=== PATIENT | female | born 1965 | race Hispanic/Latino ===

== ENCOUNTER → 2018-06-17 | Outpatient (CLI) | payer OTHER ==
[~2018-06-17] MED LIST: ADV250 IH; ALBU6.7H IH; BECL8.7A5 IH; CARV25TA PO; FURO20TA6 PO; FURO40TA5 PO; LISI40TA4 PO; OSEL75 PO; POTA-9 PO; PRED20TA3 PO
== END | disposition home or self-care (01) ==
LOC: OIH 13:48
PROVIDERS: ATTEND Internal Medicine Cardiovascular Disease
DX: Z13.6 Encounter for screening for cardiovascular disorders (principal); F10.10 Alcohol abuse, uncomplicated; I11.0 Hypertensive heart disease with heart failure; I50.9 Heart failure, unspecified
CPT/HCPCS: 75571

== ENCOUNTER 2025-02-25 01:46 | Emergency (ER) | payer MEDICAID ==
[~2025-02-25] VITALS: Ht 154.9 cm; Wt 75.3 kg
[~2025-02-25 01:46] MED LIST changes: -ADV250 IH; -ALBU6.7H IH; +ALBUHFA PUFF; +AMLO-257 PO; -BECL8.7A5 IH; -CARV25TA PO; +FLUT110HFA PO; -FURO20TA6 PO; -FURO40TA5 PO; +LETR2.5T7 PO; -LISI40TA4 PO; +LISI40TA9 PO; +METO75TA PO; -OSEL75 PO; -POTA-9 PO; -PRED20TA3 PO
--- NOTE | 2025-02-25 01:57 | NUR ---
RT CALLED AT THIS TIME
[2025-02-25 02:11] LABS: BASOPHILS # (AUTO) 0.03 K/uL (0.00-0.20); BASOPHILS % (AUTO) 0.4 % (0.0-5.0); EOSINOPHILS # (AUTO) 0.06 K/uL (0.00-0.70); EOSINOPHILS % (AUTO) 0.9 % (0.0-8.0); HEMATOCRIT 42.9 % (36-48); IMMATURE GRANULOCYTE ABSOLUTE 0.02 K/uL (0-1); LYMPHOCYTES # (AUTO) 1.4 K/uL (1.0-4.8); MEAN CORPUSCULAR HEMOGLOBIN 31.3 pg (27.0-33.0); MEAN CORPUSCULAR HGB CONC 34.7 g/dL (32.0-36.0); MEAN CORPUSCULAR VOLUME 90.1 fL (79-99); MONOCYTES # (AUTO) 0.8 K/uL (0.1-1.0); MONOCYTES % (AUTO) 11.4 % (3.0-13.0); NEUTROPHILS # (AUTO) 4.6 K/uL (1.8-7.7); PLATELET COUNT (AUTO) 160 K/uL (130-400); RED BLOOD CELL COUNT(AUTO) 4.76 MIL/uL (4.00-5.50); RED CELL DISTRIBUTION WIDTH 13.7 % (11.0-15.5); WHITE BLOOD COUNT (AUTO) 6.9 K/uL (4.8-10.8)
[2025-02-25 02:13] VITALS: PULSE 115; RESP 22
[2025-02-25] MEDS: IpraTROPium/alBUTERol SULFATE 3 ML SOLUTION IH ONE ×2 (02:13)
[2025-02-25] MEDS: MAGNESIUM 2GM PREMIX 50ML 50 ML IV SCH (02:14)
[2025-02-25] MEDS: Solu-medROL 125MG VIAL IVP ONE (02:14)
[2025-02-25 02:22] LABS: CREATININE 0.5 mg/dL (0.5-1.0); POTASSIUM 3.4 mmol/L (3.5-5.1)
[2025-02-25 02:30] LABS: MAGNESIUM 1.9 mg/dL (1.80-2.40)
[2025-02-25 02:36] LABS: ABG BASE EXCESS -1.7 mmol/L (-2.0-3.0); ABG HCO3 23.3 mmol/L (21.0-28.0); ABG OXYGEN SATURATION 92.7 % (94.0-98.0); ABG PCO2 41 mmHg (32-45); ABG PH 7.377 (7.350-7.450); DEVICE COMMENT RR RN; VENT MODE, BG RA (ROOM AIR)
[2025-02-25 02:36] LABS: SARS-CoV-2, RNA, NAAT NEGATIVE SARS CoV-2 (NEGATIVE)
[2025-02-25 02:39] LABS: B-TYPE NATRIURETIC PEPTIDE 48 pg/mL (0-100)
[2025-02-25 02:39] LABS: INFLUENZA TYPE A Negative For Type A (NEGATIVE); INFLUENZA TYPE B Negative For Type B (NEGATIVE)
[2025-02-25 03:08] VITALS: BP 135/92; PULSE 105; RESP 22; TEMP 98; O2SAT 96
[2025-02-25] MEDS ORDERED: AZIT250T9 PO (03:08)
[2025-02-25] MEDS ORDERED: METH4TAB3 PO (03:08)
--- NOTE | 2025-02-25 03:09 | ERN ---
General Chief Complaint: Shortness of Breath Stated Complaint: C/O UNABLE TO BREATHE Time Seen by MD: 01:54 Time Seen by Midlevel: 01:54 Source: patient History of Present Illness Initial Comments Patient is a 59-year-old female presenting to the emergency department for evaluation of shortness of breath. The patient reports having a history of asthma. She states that two days ago she started with flu-like symptoms and has progressively worsened. Allergies: Coded Allergies: No Known Drug Allergies (Verified Allergy, 04/07/12) Home Meds Reported Medications Metoprolol Tartrate (Metoprolol Tartrate) 75 Mg Tablet, 1 TAB PO BID for 30 Days, #60 TAB 0 Refills 01/18/25 Albuterol Sulfate (Ventolin Hfa/Proventil Hfa/Proair Hfa) 90 Mcg/Puff Puff, 2 PUFF PUFF TIDP PRN for SHORTNESS OF BREATH 05/05/23 Fluticasone Propionate (Flovent Hfa) 12 Gm Aer.w.adap, 2 PUFF PO BID for asthma 05/05/23 Letrozole (Letrozole) 2.5 Mg Tablet, 1 TAB PO DAILY 05/05/23 Amlodipine Besylate (Amlodipine Besylate) 5 Mg Tablet, 1 TAB PO DAILY for blood pressure 05/05/23 Lisinopril (Lisinopril) 40 Mg Tablet, 40 MG PO DAILY, TAB 05/05/23 Past Medical History Past Medical History: Asthma, Other Medical History Other: LEFT BREAST CA Past Surgical History: None Surgical History Other: LT LUMPECTOMY Family History Family History: Negative Social History Social History: Negative ROS Dictation CONSTITUTIONAL: Negative except for HPI HEAD/FACE: Negative except for HPI EENT: Negative except for HPI RESPIRATORY: Negative except for HPI GASTROINTESTINAL/ABDOMINAL: Negative except for HPI GENITOURINARY: Negative except for HPI MUSCULOSKELETAL: Negative except for HPI INTEGUMENTARY: Negative except for HPI NEUROLOGICAL/PSYCH: Negative except for HPI HEMATOLOGIC/LYMPHATIC: Negative except for HPI All Systems Negative, Except as noted above. 13 point review of systems assessed and all negative except for above. Physical Exam Physical Exam Dictation Vital Signs reviewed General Appearance: Alert, oriented x 3, no acute distress, well developed, nourished. Head and Face: non-traumatic. Eyes: PERRL, pink conjunctivas, eyelid no trauma, anterior chamber with arcus senilis. Ears: Pinnas intact and no signs of trauma or erythema ear canals clear and no discharge TM no erythema Nose: No discharge, no bleeding. Oropharynx: Mouth normal, tongue pink, pharynx clear,no erythema, tonsils no exudates, no abscesses noted, mucous membrane moist Neck: Supple, non-tender, no thyromegaly, no masses, no JVD, no bruits Breast:Deferred Chest:No tenderness, no crepitus, no paradoxical movement, no retractions Lungs: Decreased breath sounds bilaterally, mild expiratory wheezing Heart: Regular rate, regular rhythm, no murmur, no gallops Vascular: no peripheral edema, Abdomen: Soft, positive bowel sounds, nondistended, no guarding, nontender, no rebound, no masses no hepatomegaly, no splenomegaly, no Mclain's sign, no hernias. Rectal: Deferred Genital: Deferred Neurological: Normal speech, motor function intact, sensory function intact Musculoskeletal: Neck nontender, full range of motion, back nontender, full range of motion, Extremities: nontender, full range of motion Skin: Color pink, dry, no turgor, no rash, no lacerations, no abrasions, no contusions. Lymphatic: Deferred Results Laboratory and Microbiology Lab and Micro Result Laboratory Tests Test 02/25/25 02:04 02/25/25 02:10 02/25/25 02:34 White Blood Count 6.9 K/uL (4.8-10.8) Red Blood Count 4.76 MIL/uL (4.00-5.50) Hemoglobin 14.9 g/dL (12.0-16.0) Hematocrit 42.9 % (36-48) Mean Corpuscular Volume 90.1 fL (79-99) Mean Corpuscular Hemoglobin 31.3 pg (27.0-33.0) Mean Corpuscular Hemoglobin Concent 34.7 g/dL (32.0-36.0) Red Cell Distribution Width 13.7 % (11.0-15.5) Platelet Count 160 K/uL (130-400) Mean Platelet Volume 11.5 fL (7.5-10.5) H Immature Granulocyte % (Auto) 0.3 % (0-1) Neutrophils (%) (Auto) 67.0 % (40.0-77.0) Lymphocytes (%) (Auto) 20.0 % (21.0-51.0) L Monocytes (%) (Auto) 11.4 % (3.0-13.0) Eosinophils (%) (Auto) 0.9 % (0.0-8.0) Basophils (%) (Auto) 0.4 % (0.0-5.0) Neutrophils # (Auto) 4.6 K/uL (1.8-7.7) Lymphocytes # (Auto) 1.4 K/uL (1.0-4.8) Monocytes # (Auto) 0.8 K/uL (0.1-1.0) Eosinophils # (Auto) 0.06 K/uL (0.00-0.70) Basophils # (Auto) 0.03 K/uL (0.00-0.20) Absolute Immature Granulocyte (auto 0.02 K/uL (0-1) Nucleated Red Blood Cells 0.0 % (0.0-0.19) Sodium Level 141 mmol/L (136-145) Potassium Level 3.4 mmol/L (3.5-5.1) L Chloride Level 101 mmol/L (101-111) Carbon Dioxide Level 26 mmol/L (21-32) Blood Urea Nitrogen 9 mg/dL (7-18) Creatinine 0.5 mg/dL (0.5-1.0) Glomerular Filtration Rate Calc 108 mL/min (>90) Random Glucose 141 mg/dL (70-105) H Total Calcium 9.5 mg/dL (8.5-10.1) Magnesium Level 1.90 mg/dL (1.80-2.40) Troponin I High Sensitivity 8 ng/L (4-50) B-Type Natriuretic Peptide 48 pg/mL (0-100) Influenza Type A Antigen Negative For Type A Influenza Type B Antigen Negative For Type B SARS-CoV-2, RNA, NAAT NEGATIVE SARS CoV-2 Blood Gas Specimen Type Arterial Arterial Blood pH 7.377 (7.350-7.450) Arterial Blood Partial Pressure CO2 41 mmHg (32-45) Arterial Blood Partial Pressure O2 66.0 mmHg (83.0-108.0) L Arterial Blood HCO3 23.3 mmol/L (21.0-28.0) Arterial Blood Oxygen Saturation 92.7 % (94.0-98.0) L Arterial Blood Base Excess -1.7 mmol/L (-2.0-3.0) Blood Gas Temperature 37.0 CELSIUS (35.5-37.0) Blood Gas Vent Mode RA (ROOM AIR) FiO2 21.0 % Blood Gas Specimen Comment RR RN Labs Reviewed?: Yes MDM MDM: 59-year-old female with a past medical history of asthma presenting to the ER with an acute asthma exacerbation. Patient was given one DuoNeb, one Atrovent treatment, Solu-Medrol IV, and magnesium sulfate. On repeat examination she reports feeling significantly improved. Repeat exam is unremarkable. Patient feels comfortable going home. We will discharged home on azithromycin and Medrol pack. CBC and chemistries are stable. Chest x-ray shows no obvious pneumonia. We will discharged home with supportive management Differential diagnosis: Pneumonia, acute asthma exacerbation, COPD exacerbation There are no social concerns with this patient. Prescription drug management Prescriptions will include: Azithromycin and Medrol pack Medical management and examination interpretation discussions were had by me with other qualified healthcare professionals as indicated for the patient's care. ED Course Orders Procedure Category Date Status Time Methylprednisolone PHA 02/25/25 Complete Succ 125mg (Solu-Medr 02:00 Ipratropium/Albuterol PHA 02/25/25 Complete Neb (Duoneb) 02:00 Magnesium 2gm Premix PHA 02/25/25 In Process 50ml (Magnesium 2gm 02:00 Cbc With Differential LAB 02/25/25 Complete 01:57 Basic Metabolic Panel LAB 02/25/25 Complete 01:57 B-Type Natriuretic LAB 02/25/25 Complete Peptide 01:57 Covid Rna Naat LAB 02/25/25 Complete 01:57 Influenza Type A & B, LAB 02/25/25 Complete Rapid 01:57 Magnesium LAB 02/25/25 Complete 01:57 Chest 1vw RAD 02/25/25 Taken 01:57 Troponin I High LAB 02/25/25 Complete Sensitivity 01:57 Arterial Blood Gas RT 02/25/25 Transmitted 01:59 Ipratropium/Albuterol PHA 02/25/25 Complete Neb (Duoneb) 01:58 Arterial Blood Gas LAB 02/25/25 Complete 02:34 Current Medications Medications (Trade) Dose Ordered Sig/Opal Route PRN Reason Start Time Stop Time Status Last Admin Dose Admin Albuterol (DUOneb) 1 UDVIAL ONCE ONCE IH 02/25/25 02:00 02/25/25 02:01 DC 02/25/25 02:13 Albuterol (DUOneb) 1 udvial STK-MED ONCE IH 02/25/25 01:58 02/25/25 01:59 DC Magnesium Sulfate 50 ml @ 0 mls/hr PROTOCOL IV 02/25/25 02:00 03/27/25 01:59 02/25/25 02:14 Methylprednisolone Sodium Succinate (Solu-medROL 125MG) 125 mg ONCE ONCE IVP 02/25/25 02:00 02/25/25 02:01 DC 02/25/25 02:14 Vital Signs Date Time Temp Pulse Resp B/P (MAP) Pulse Ox O2 Delivery O2 Flow Rate FiO2 02/25/25 02:13 115 22 02/25/25 02:04 97.9 110 27 166/100 96 Room Air* 0 21 02/25/25 01:47 97.3 133 28 193/107 95 Room Air DX & DISP Disposition: Discharge Departure Impression: Primary Impression: Acute asthma exacerbation Condition: Stable Scripts Methylprednisolone (Medrol) 4 Mg Tab.ds.pk 1 TAB PO AD for 6 Days, #21 TAB 0 Refills 6 on day 1 then reduce by one tablet daily until gone Prov: TATO SAGASTUME 02/25/25 Azithromycin (Azithromycin) 250 Mg Tablet 1 TAB PO AD for 5 Days, #6 TAB 0 Refills 2 the first day followed by 1 for days 2-5 Prov: TATO SAGASTUME 02/25/25 Referrals: BELÉN CAMARENA [facility]- (PCP) Time of Disposition: 03:07 I have reviewed the case, and I agree with, Diagnosis and Plan I performed the substantive portion of the visit. I have reviewed and personally made and approve the management plan that is documented in the note by myself or the DIANA. I acknowledge for responsibility for the patient's management plan. TATO SAGASTUME February 25, 2025 03:09
--- NOTE | 2025-02-25 12:00 | HMCIMG ---
CHEST 1VW HISTORY: Shortness of breath COMPARISON: 01/17/2025 FINDINGS: A frontal projection of the chest was obtained. Small round nodule is seen in the right midlung unchanged. No acute pulmonary infiltrates is seen. The heart is borderline enlarged. Degenerative changes are seen. No evidence of aortic calcification is seen. IMPRESSION: 1. More round nodule in the right midlung unchanged.
== END 2025-02-25 03:23 | disposition home or self-care (01) ==
LOC: EDH 01:46
DX: J45.901 Unspecified asthma with (acute) exacerbation (principal); Z79.51 Long term (current) use of inhaled steroids; Z79.811 Long term (current) use of aromatase inhibitors; Z79.899 Other long term (current) drug therapy; Z85.3 Personal history of malignant neoplasm of breast; Z20.822 Contact with and (suspected) exposure to COVID-19
CPT/HCPCS: 99284; 96374; 71045; 87635; 96375; 83735; 84484; 80048; 82803; 83880; 85025; 87804 ×2; 36415; 36600; 94640; J2919; J3475

== ENCOUNTER 2025-03-21 03:00 | Emergency (ER) | payer MEDICAID ==
[~2025-03-21] VITALS: Ht 154.9 cm; Wt 73.5 kg
[~2025-03-21 03:00] MED LIST changes: +AZIT250T9 PO; +LISI40TA15 PO; -LISI40TA9 PO; +METH4TAB3 PO
--- NOTE | 2025-03-21 03:06 | ERN ---
General Chief Complaint: Adult-Asthma Stated Complaint: SOB Time Seen by MD: 03:06 Source: patient History of Present Illness Initial Comments Patient comes in with a sudden exacerbation of her asthma. She is having trouble completing sentences having trouble breathing. Chest auscultation shows extremely tight airways and for some breaths no airway movement at all. She had a similar admission to the ED about two weeks ago for the same symptoms. She was treated with magnesium Solu-Medrol and DuoNeb and sent home. Allergies: Coded Allergies: No Known Drug Allergies (Verified Allergy, 04/07/12) Home Meds Active Scripts Methylprednisolone (Medrol) 4 Mg Tab.ds.pk, 1 TAB PO AD for 6 Days, #21 TAB 0 Refills 6 on day 1 then reduce by one tablet daily until gone Prov:TATO SAGASTUME 02/25/25 Azithromycin (Azithromycin) 250 Mg Tablet, 1 TAB PO AD for 5 Days, #6 TAB 0 Refills 2 the first day followed by 1 for days 2-5 Prov:TATO SAGASTUME 02/25/25 Reported Medications Metoprolol Tartrate (Metoprolol Tartrate) 75 Mg Tablet, 1 TAB PO BID for 30 Days, #60 TAB 0 Refills 01/18/25 Albuterol Sulfate (Ventolin Hfa/Proventil Hfa/Proair Hfa) 90 Mcg/Puff Puff, 2 PUFF PUFF TIDP PRN for SHORTNESS OF BREATH 05/05/23 Fluticasone Propionate (Flovent Hfa) 12 Gm Aer.w.adap, 2 PUFF PO BID for asthma 05/05/23 Letrozole (Letrozole) 2.5 Mg Tablet, 1 TAB PO DAILY 05/05/23 Amlodipine Besylate (Amlodipine Besylate) 5 Mg Tablet, 1 TAB PO DAILY for blood pressure 05/05/23 Lisinopril (Lisinopril) 40 Mg Tablet, 40 MG PO DAILY, TAB 05/05/23 Past Medical History Past Medical History: Asthma, Other Medical History Other: LEFT BREAST CA Past Surgical History: None Surgical History Other: LT LUMPECTOMY Family History Family History: Negative Social History Social History: Negative Constitutional: (-) chills, (-) diaphoresis, (-) fever, (-) malaise, (-) weakness, (-) other documentation EENTM: (-) eye pain, (-) blurred vision, (-) tearing, (-) double vision, (-) ear pain, (-) ear discharge, (-) nose pain, (-) nose congestion, (-) throat pain, (-) Throat swelling, (-) mouth pain, (-) tooth pain, (-) mouth swelling, (-) other documentation Respiratory: (+) cough, (+) short of breath, (+) wheezing Cardiovascular: (-) chest pain, (-) edema, (-) palpitations, (-) syncope, (-) dyspnea on exertion, (-) other documentation Gastrointestinal/Abdominal: (-) nausea, (-) vomiting, (-) diarrhea, (-) abdominal pain, (-) abdominal distention, (-) constipation, (-) rectal bleeding, (-) dark stool/melena, (-) other documentation Musculoskeletal: (-) Neck pain, (-) back pain, (-) Flank Pain, (-) joint pain, (-) joint swelling, (-) muscle pain, (-) muscle stiffness, (-) gout, (-) other documentation Skin: (-) laceration, (-) contusion, (-) abrasion, (-) abscess, (-) rash, (-) change in color, (-) change in hair, (-) change in nails, (-) diaphoresis, (-) dryness, (-) other documentation Physical Exam General Appearance: (+) moderate distress Orientation: (+) oriented x 3 Head/Face Trauma: No Eye: bilateral eye normal inspection, bilateral eye PERRL, bilateral eye EOMI Ear, Nose, Throat: (+) hearing grossly normal, (+) moist mucous membraine Neck: (+) normal inspection, (+) supple, (+) full range of motion Respiratory: (+) chest non-tender Respiratory Comment Near absence of any air movement into either lung. When there is air movement it is extremely high pitched. Heart: (+) no gallop, (+) tachycardia Vascular: (+) no edema, (+) normal peripheral pulse Gastrointestinal: (+) soft MDM I ordered solumedrol, Magnesium and a duoneb. Pt still some wheezing but moving more air. I will repeat the duoneb. Patient is doing much better now. I will discharge her home on a steroid taper. ED Course Orders Procedure Category Date Status Time Magnesium 2gm Premix PHA 03/21/25 In Process 50ml (Magnesium 2gm 03:30 Methylprednisolone PHA 03/21/25 Complete Succ 125mg (Solu-Medr 03:30 Albuterol 0.083% PHA 03/21/25 Complete 2.5mg/3ml (Proventil 03:30 Ipratropium/Albuterol PHA 03/21/25 Complete Neb (Duoneb) 03:30 Ipratropium/Albuterol PHA 03/21/25 Complete Neb (Duoneb) 04:30 Chest 1vw RAD 03/21/25 Taken 04:20 Current Medications Medications (Trade) Dose Ordered Sig/Opal Route PRN Reason Start Time Stop Time Status Last Admin Dose Admin Albuterol (DUOneb) 1 UDVIAL ONCE ONCE IH 03/21/25 03:30 03/21/25 03:31 DC 03/21/25 03:37 Albuterol (DUOneb) 1 UDVIAL ONCE ONCE IH 03/21/25 04:30 03/21/25 04:31 DC 03/21/25 04:18 Albuterol Sulfate (Proventil 0.083% 2.5mg/3ml) 2.5MG ONCE ONCE IH 03/21/25 03:30 03/21/25 03:18 DC Magnesium Sulfate 50 ml @ 0 mls/hr PROTOCOL IV 03/21/25 03:30 04/20/25 03:29 03/21/25 03:44 Methylprednisolone Sodium Succinate (Solu-medROL 125MG) 125 mg ONCE ONCE IVP 03/21/25 03:30 03/21/25 03:31 DC 03/21/25 03:43 Vital Signs Date Time Temp Pulse Resp B/P (MAP) Pulse Ox O2 Delivery O2 Flow Rate FiO2 03/21/25 04:54 107 20 140/80 93 Room Air* 0 03/21/25 04:18 100 22 03/21/25 03:38 97.0 115 24 139/97 93 Room Air* 0 03/21/25 03:37 111 22 03/21/25 03:08 97.0 134 24 162/106 92 Room Air* 0 03/21/25 03:03 97.5 134 18 164/104 94 Room Air DX & DISP Disposition: Discharge Departure Impression: Primary Impression: ASTHMA, UNSPECIFIED, W (ACUTE) EXACERBATION Condition: Stable Scripts Prednisone (Prednisone) 20 Mg Tablet 1 TAB PO BID for 10 Days, #20 TAB 0 Refills Prov: GHAZALA TOBIN MD 03/21/25 Additional Instructions: I have written a prescription for 10 days' worth of prednisone to help control your asthma please see your primary care physician about maintaining that dose or changing some of your inhalers so that you can avoid future asthma attacks. Referrals: BELÉN CAMARENAP-BC (PCP) GHAZALA TOBIN MD Mar 21, 2025 03:06
[2025-03-21] MEDS ORDERED: ALBUTEROL 0.083% 2.5 MG/3 ML INH IH ONE (03:30)
[2025-03-21 03:37] VITALS: PULSE 111; RESP 22
[2025-03-21] MEDS: IpraTROPium/alBUTERol SULFATE 3 ML SOLUTION IH ONE ×2 (03:37→04:18)
[2025-03-21] MEDS: Solu-medROL 125MG VIAL IVP ONE (03:43)
[2025-03-21] MEDS: MAGNESIUM 2GM PREMIX 50ML 50 ML IV SCH (03:44)
[2025-03-21 04:18] VITALS: PULSE 100; RESP 22
[2025-03-21] MEDS ORDERED: PRED20TA3 PO (05:18)
[2025-03-21 05:44] VITALS: BP 135/73; PULSE 105; RESP 20; TEMP 97.4; O2SAT 95
--- NOTE | 2025-03-21 12:11 | HMCIMG ---
CHEST 1VW HISTORY: Asthma COMPARISON: 02/25/2025 FINDINGS: A frontal projection of the chest was obtained. No acute pulmonary infiltrates is seen. The heart is borderline enlarged. Degenerative changes are seen. Prominent interstitial markings are seen. Aortic calcifications are seen. IMPRESSION: 1. No acute pulmonary infiltrate is seen.
== END 2025-03-21 05:51 | disposition home or self-care (01) ==
LOC: EDH 03:00
DX: J45.901 Unspecified asthma with (acute) exacerbation (principal); Z79.51 Long term (current) use of inhaled steroids; Z79.811 Long term (current) use of aromatase inhibitors; Z79.899 Other long term (current) drug therapy; Z85.3 Personal history of malignant neoplasm of breast
CPT/HCPCS: 99285; 96365; 71045; 96366; 96375; 94640 ×2; J2919; J3475